=== PATIENT | male | born 1970 | race Caucasian/White ===

== ENCOUNTER 2022-10-04 09:13 | Emergency (ER) | payer OTHER, SELFPAY ==
[2022-10-04 09:20] VITALS: BP 154/95; PULSE 72; RESP 16; TEMP 37.2; O2SAT 99
--- NOTE | 2022-10-04 09:22 | ED.URI ---
HPI - URI/Sore Throat General Chief Complaint: Upper Respiratory Infection Stated Complaint: Cough/Sore Throat Time Seen by Provider: 10/04/22 09:24 Source: patient and RN notes reviewed Mode of arrival: ambulatory Limitations: no limitations History of Present Illness HPI Narrative: 52-year-old male presents with concern for 2 day history of cough and nasal congestion. Reports sore throat. Reports he took a Mucinex without relief. He denies fever, aches, chills, sweats. Denies known sick contacts. MD elicited complaint: cough and sore throat Related Data Allergies Allergy/AdvReac Type Severity Reaction Status Date / Time No Known Allergies Allergy Verified 03/21/22 17:04 Review of Systems Review of Systems: CONSTITUTIONAL: Denies malaise, chills, sweats, or fever. EYES: Denies visual changes, redness, or discharge. ENT: Reports rhinorrhea, congestion, sore throat. Denies sinus pain, otalgia CARDIOVASCULAR: Denies chest pain, palpitations, or edema. RESPIRATORY: Reports cough. Denies dyspnea. GASTROINTESTINAL: Denies abdominal pain, nausea, vomiting, diarrhea SKIN: Denies rash or itching. MUSCULOSKELETAL: Denies myalgia. NEUROLOGIC: Denies headache. All systems reviewed & are unremarkable except as noted in HPI and below PMFSH Past Medical History Medical History (Updated 10/04/22 @ 09:32 by Rossy Bautista NP) Anxiety BMI 32.0-32.9,adult BMI 34.0-34.9,adult Erectile dysfunction Essential hypertension Primary insomnia Social History Social History Smoking status: Former smoker Alcohol intake: current Drinks per week: 15 Alcohol use details: every other day Comments At time of signature, agree with nursing past medical, surgical, social and family history. There is no relevant family history pertinent to the presenting complaint Exam Narrative: GENERAL: Well-appearing, well-nourished, and in no acute distress. HEAD: Normocephalic EYES: PERRLA, conjunctivae clear ENT: Nares clear, turbinates edematous and erythematous, clear discharge. Mucous membranes moist. TM pearly clemens with dull light reflex bilaterally; no tragal tenderness. Oropharynx not erythematous without lesions. Tonsils not enlarged and without exudate, no drooling, no hoarseness, no trismus, uvula midline. NECK: Supple. No lymphadenopathy CHEST: Scattered wheeze, otherwise Clear to auscultation, breath sounds equal. No rhonchi, rales, or stridor. No respiratory distress, speaks in full sentences. HEART: Regular rate and rhythm. No murmur heard. SKIN: Warm, dry, no rash. NEURO: Alert and oriented x3. PSYCH: Normal mood and affect Course Course Emergency Course: Patient is aware of diagnosis, understands and agrees to treatment plan. Anticipatory guidance given. Patient agrees to follow-up as directed and is aware of reasons to seek care at the emergency department. Portions of this record may have been created with voice recognition software Level of Care: Express Care Visit Vital Signs Vital signs: Vital Signs Temperature 99 F 10/04/22 09:20 Pulse Rate 72 10/04/22 09:20 Respiratory Rate 16 10/04/22 09:20 Blood Pressure 154/95 H 10/04/22 09:20 Pulse Oximetry 99 10/04/22 09:20 Oxygen Delivery Room Air 10/04/22 09:20 Temperature 99 F 10/04/22 09:20 Pulse Rate 72 10/04/22 09:20 Respiratory Rate 16 10/04/22 09:20 Blood Pressure 154/95 H 10/04/22 09:20 Pulse Oximetry 99 10/04/22 09:20 Oxygen Delivery Room Air 10/04/22 09:20 Reviewed. MDM - URI/Sore Throat MDM Narrative Medical decision making narrative: Differential diagnosis considered: Carvajal virus, strep pharyngitis, allergic rhinitis, upper respiratory tract infection, sinusitis, rhinosinusitis, nasopharyngitis. viral pharyngitis, otitis media, otitis externa, pneumonia, bronchitis, viral cough syndrome, viral syndrome, and influenza. Exam findings show no acute concerns or changes;
== END 2022-10-04 09:43 | disposition home or self-care (01) ==
PROVIDERS: Emergency Provider Nurse Practitioner; PCP Family Medicine
DX: J06.9 Acute upper respiratory infection, unspecified (principal); I10 Essential (primary) hypertension; Z87.891 Personal history of nicotine dependence
CPT/HCPCS: 99213; G0463

== ENCOUNTER 2023-02-14 09:37 | Emergency (ER) | payer OTHER, SELFPAY ==
--- NOTE | ~2023-02-14 | XR_ITS ---
EXAMINATION: XR elbow RT min 3V DATE: 02/14/2023 10:03 INDICATION: Tennis elbow with chronic right elbow pain TECHNIQUE: Anteroposterior, two oblique and lateral views of the right elbow were obtained. COMPARISON: None. FINDINGS: Alignment is normal. No fracture or joint effusion. Joint spaces are normal. Large enthesophyte at th e triceps insertion along the proximal olecranon. Additional moderate size enthesophyte at the latera l epicondylar origin of the common extensor tendon wad. IMPRESSION: 1. Enthesophytes at the olecranon and lateral humeral epicondyle. Reviewed, dictated and finalized at location L.
[2023-02-14 09:44] VITALS: BP 182/101; PULSE 87; RESP 20; TEMP 36.7; O2SAT 96
--- NOTE | 2023-02-14 10:18 | ED.GENADULT ---
HPI - General Adult General Chief complaint: Extremity Injury, Upper Stated complaint: Right Elbow Pain Time Seen by Provider: 02/14/23 10:03 Source: patient, RN notes reviewed and old records reviewed Mode of arrival: ambulatory Limitations: no limitations History of Present Illness HPI narrative: 52 year old male who resents to express care with complaints of right elbow pain for months. He reports that he thinks it is severe tennis elbow and he he wearing Velcro wrap to his proximal elbow area. 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 He states that arm doesn't get any rest, reports that he was on vacation for a week and he continued to have pain. He has been taking Ibuprofen for his discomfort. MD complaint: right elbow pain Onset (ago): month(s) Location: right and upper extremity (elbow) Severity scale (1-10): 10 Treatments prior to arrival: NSAID and splint (Velcro strap) Related Data Allergies Allergy/AdvReac Type Severity Reaction Status Date / Time No Known Allergies Allergy Verified 02/14/23 09:50 Review of Systems Review of Systems: CONSTITUTIONAL: Denies fever, chills, or sweats. EYES: Denies visual changes, redness, or discharge. ENT: Denies rhinorrhea, congestion, sore throat, or otalgia. CARDIOVASCULAR: Denies chest pain, palpitations, or edema. RESPIRATORY: Denies cough or dyspnea. GASTROINTESTINAL: Denies abdominal pain, nausea, vomiting, or diarrhea. GENITOURINARY: Denies dysuria or hematuria. SKIN: Denies rash or itching. MUSCULOSKELETAL: Denies back pain,positive for right elbow joint pain, or myalgia. NEUROLOGIC: Denies headache, numbness, or weakness. PSYCHIATRIC:reports history of anxiety or depression. All systems reviewed & are unremarkable except as noted in HPI and below PMFSH Past Medical History Medical History Adult BMI 31.0-31.9 kg/sq m Anxiety BMI 32.0-32.9,adult BMI 34.0-34.9,adult Erectile dysfunction Essential hypertension Primary insomnia Social History Social History (Updated 02/16/23 @ 06:58 by Mounika Calhoun NP) Smoking status: Former smoker Alcohol intake: current Drinks per week: 15 Alcohol use details: every other day Substance use type: does not use Living arrangements: with family Gender identity (if verbalized by the patient): Male Comments At time of signature, agree with nursing past medical, surgical, social and family history. There is no relevant family history pertinent to the presenting complaint Exam Narrative: GENERAL: Well-appearing, well-nourished, and in no acute distress. HEAD: Normocephalic, atraumatic. EYES: PERRLA and EOMI. ENT: Nares clear, no rhinorrhea or epistaxis. Mucous membranes moist.TM's normal, throat pink with no swelling NECK: Supple. no lymphadenopathy CHEST: Clear to auscultation. No respiratory distress.SAO2 96% on room air HEART: Regular rate and rhythm. No murmur heard. Normal peripheral pulses. ABDOMEN: Soft, nontender, nondistended, normal active bowel sounds. EXTREMITIES: Normal range of motion. No edema.Pain to right elbow with full ROM noted but with pain, strong pulses to right arm and wrist,sensation intact, voices increased pain with movement.Pain with palpation along olecranon and lateral elbow region. SKIN: Warm, dry, no rash. NEURO: No focal deficits. Alert and oriented x3. Course Course Emergency Course: Patient is aware of diagnosis, understands and agrees to treatment plan.? Anticipatory guidance given.? Patient agrees to follow-up as directed and is aware of reasons to seek care at the emergency department. Portions of this record may have been created with voice recognition software Level of Care: Express Care Visit Vital Signs Vital signs: Vital Signs Temperature 36.7 C 02/14/23 09:44 Pulse Rate 87 02/14/23 09:44
[2023-02-14 10:32] VITALS: BP 151/89
== END 2023-02-14 10:38 | disposition home or self-care (01) ==
PROVIDERS: Emergency Provider Registered Nurse; PCP Family Medicine
DX: M25.521 Pain in right elbow (principal); Z87.891 Personal history of nicotine dependence; I10 Essential (primary) hypertension
CPT/HCPCS: 73080; 99213; G0463

== ENCOUNTER 2023-05-22 11:39 | Outpatient (CLI) | payer OTHER, SELFPAY ==
--- NOTE | ~2023-05-22 | CT_ITS ---
EXAMINATION: CT abdomen pelvis w con DATE: 05/22/2023 12:03 INDICATION: Left lower quadrant abdominal pain. TECHNIQUE: Computed tomography (CT) of the abdomen and pelvis was performed with 100 mL Omnipaque 350 intravenous contrast. Automated exposure control and iterative reconstruction technique were employe d. The dose-length product was 1212.33 mGy-cm. COMPARISON: None. FINDINGS: The visualized portions of the lung bases demonstrate mild atelectasis. A calcified right l ivana nodule and calcified right hilar and mediastinal lymph nodes are consistent with old granulomatou s disease. No pleural effusion. The heart size is normal. No pericardial effusion. There is diffuse h epatic steatosis. Calcifications in the liver and spleen are consistent with old granulomatous diseas e. There are changes of cholecystectomy. The adrenal glands and kidneys are normal. There are scatter ed diverticula in the colon. There is fat stranding around sigmoid colon colon with wall thickening o f sigmoid colon, consistent with diverticulitis. The appendix is normal. There are no dilated loops o f bowel. The prostate is mildly enlarged. There are no pathologically enlarged lymph nodes. There is no free intraperitoneal fluid. There is mild lumbar spondylosis. IMPRESSION: 1. Acute sigmoid diverticulitis. No perforation or abscess. Reviewed, dictated and finalized at location A.
[2023-05-22 11:59] LABS: Estimated Glomerular Filt Rate > 60
[2023-05-22 12:46] LABS: Basophils Absolute Auto 0.1 K/mm3 (0.0-0.1); Basophils Percent Auto 0.6 % (0.2-1.2); Eosinophils Absolute Auto 0.3 K/mm3 (0-0.3); Eosinophils Percent Auto 2.5 % (0-4.4); Hematocrit 44.2 % (42.0-52.0); Hemoglobin 14.9 g/dL (14.0-18.0); Immature Granulocyte Absolute 0.02 K/mm3 (0.00-0.031); Immature Granulocyte Percent A 0.2 % (0-0.5); Lymphocytes Absolute Auto 1.43 K/mm3 (0.9-3.2); Lymphocytes Percent Auto 13.9 % (18.3-44.2); Mean Corpuscular HGB Conc 33.7 g/dl (32-36); Mean Corpuscular Hemoglobin 30.8 pg (26-34); Mean Corpuscular Volume 91.3 fl (80-100); Mean Platelet Volume 10.3 fl (7.4-10.4); Monocytes Percent Auto 9.6 % (2.6-8.5); Neutrophils Absolute Auto 7.5 K/mm3 (1.3-6.7); Neutrophils Percent Auto 73.2 % (45.5-73.1); Platelet Count Result 255 k/mm3 (150-375); Red Blood Count 4.84 M/mm3 (4.6-6.20); Red Cell Distribution Width 12.2 % (11.5-14.5); White Blood Count 10.3 K/mm3 (4.5-10.0)
[2023-05-22 12:57] LABS: Alanine Aminotransferase 46 U/L (6-50); Albumin Level 4.2 g/dL (3.5-5.1); Alkaline Phosphatase 58 U/L (38-126); Anion Gap 7 mmol/L (8-16); Aspartate Amino Transferase 33 U/L (17-59); Bilirubin,Total 0.8 mg/dL (0.2-1.3); Blood Urea Nitrogen 19 mg/dL (9-20); Carbon Dioxide 27 mmol/L (22-30); Chloride 103 mmol/L (98-107); Estimated Glomerular Filt Rate > 60; Glucose 101 mg/dL (65-110); Potassium 3.7 mmol/L (3.4-5.0); Sodium 137 mmol/L (137-145)
== END 2023-05-22 11:40 | disposition home or self-care (01) ==
LOC: ANHIMG 11:41
PROVIDERS: PCP Family Medicine; Visit Provider Physician Assistant Medical
DX: R10.32 Left lower quadrant pain (principal); K57.32 Diverticulitis of large intestine without perforation or abscess without bleeding
CPT/HCPCS: 74177; 80053; 85025; Q9967

== ENCOUNTER 2023-09-12 14:19 | Emergency (ER) | payer OTHER, SELFPAY ==
--- NOTE | 2023-09-12 14:26 | ED.EAR ---
HPI - Ear Problem General Chief complaint: Ear Stated complaint: Cough/Ear Pain Source: patient and RN notes reviewed History of Present Illness HPI Narrative: 53 yo M presents to urgent care with complaints of continuous cough, congestion in chest, and bialteral ear fullness. Pt states he really can't hear out of his left ear, more so than normal. Pt states this all started about 2 weeks ago and was placed on a z-pack by his PCP with no relief. Pt reports some SOB. Denies any fever, chills, chest pain, N/V/D. Related Data Allergies Allergy/AdvReac Type Severity Reaction Status Date / Time No Known Allergies Allergy Verified 06/15/23 15:11 Review of Systems Review of Systems: Pertinent positives and pertinent negatives per HPI. [facility] Past Medical History Medical History Adult BMI 31.0-31.9 kg/sq m Anxiety BMI 32.0-32.9,adult BMI 34.0-34.9,adult Erectile dysfunction Essential hypertension Primary insomnia Surgical History Surgical History H/O hernia repair History of cholecystectomy Social History Social History Smoking status: Former smoker Alcohol intake: current Drinks per week: 8 Alcohol use details: every other day Substance use type: does not use Living arrangements: with family Gender identity (if verbalized by the patient): Male Comments At the time of my signature, I reviewed and agree with the nursing past medical, surgical, social, and family history. There is no relevant family history pertinent to the patient complaint. Exam Narrative: GENERAL: This is a well-nourished, well-developed patient, in no apparent distress. HEAD: normocephalic, atraumatic. EYES: Sclera clear/white. Vision is grossly intact. EARS: External ears normal, auditory canals clear and without drainage, Right TM normal without perforation. Hearing grossly intact. Left TM erythremic and + perforation. no drainage. NOSE: External nose normal with no obvious nasal discharge, nares without redness, no rhinorrhea. THROAT: Mucous membranes moist, posterior pharynx clear. NECK: Neck supple, non-tender without lymphadenopathy, masses or thyromegaly. CARDIOVASCULAR: Regular rate and rhythm without murmurs, gallops, or rubs. RESPIRATORY: Breath sounds equal bilaterally. Mild wheezes noted throughout. No rales, or rhonchi. SKIN: warm, intact with no suspicious lesions or rash, good texture and turgor. NEURO: awake, alert, and oriented to person, place and time. There were no obvious focal neurologic abnormalities. EXTREMITIES: No clubbing, cyanosis, or edema. No joint tenderness, effusion, or edema noted. BACK: Nontender without deformity or crepitus. No flank tenderness. Course Course Level of Care: Express Care Visit Vital Signs Vital signs: Reviewed Medical Decision Making MDM Narrative Medical decision making narrative: Take steroids as directed. May use the inhaler every 4-6 hours as needed for coughing. Increase fluids at home. Avoid any and all smoke. May use a humidifier in the bedroom. Increase your Vitamin C. Follow-up with personal physician in 2-5 days. Take the antibiotics as directed. Take an antihistamine or Sudafed at home as directed. Get plenty of fluids. Differential Diagnosis Differential Diagnosis: AOM, cerumen impaction, TM rupture, sinusitis, PNA, bronchitis Critical Care Time Critical Care Time Critical Care Time: No Discharge Plan Discharge Clinical Impression: Otitis media, serous, TM rupture, Bronchitis Patient Disposition: Home, Self-Care Condition: Stable Instructions: Antibiotic Form, Acute Bronchitis (ED), Fluid In The Ear (Serous Otitis Media) (ED) Additional Instructions: Take steroids as directed. May use the inhaler every 4-6 hours as needed for coughing. Increase fluids at tano
[2023-09-12 14:29] VITALS: BP 152/100; PULSE 80; RESP 16; TEMP 36.6; O2SAT 97
== END 2023-09-12 14:42 | disposition home or self-care (01) ==
PROVIDERS: Emergency Provider Nurse Practitioner Family; PCP Family Medicine
DX: H65.92 Unspecified nonsuppurative otitis media, left ear (principal); H72.92 Unspecified perforation of tympanic membrane, left ear; J40 Bronchitis, not specified as acute or chronic; Z87.891 Personal history of nicotine dependence; I10 Essential (primary) hypertension
CPT/HCPCS: 99213; G0463

== ENCOUNTER 2023-12-29 13:34 | Emergency (ER) | payer OTHER, SELFPAY ==
[2023-12-29 13:40] VITALS: BP 142/81; PULSE 66; RESP 16; TEMP 36.4; O2SAT 99
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
== END 2023-12-29 14:03 | disposition home or self-care (01) ==
PROVIDERS: Emergency Provider Nurse Practitioner Family; PCP Family Medicine
DX: S81.802A Unspecified open wound, left lower leg, initial encounter (principal); X58.XXXA Exposure to other specified factors, initial encounter; I10 Essential (primary) hypertension; Z87.891 Personal history of nicotine dependence
CPT/HCPCS: 99213; G0463

== ENCOUNTER 2024-09-06 07:51 | Outpatient (CLI) | payer OTHER, SELFPAY ==
--- NOTE | ~2024-09-06 | MR_ITS ---
EXAMINATION: MR elbow RT wo con DATE: 09/06/2024 08:40 INDICATION: Right elbow lateral epicondylitis TECHNIQUE: Magnetic resonance imaging (MRI) of the right elbow was performed without intravenous cont rast. Sequences included coronal, axial, and sagittal PD-weighted FS FSE and coronal, axial, and sagi ttal PD-weighted FSE. COMPARISON: None FINDINGS: Osseous/other: Normal alignment. Normal marrow signal with no marrow edema, fracture, osteochondral lesion or abnor mal marrow replacing process. Mild osteoarthritis with mild nonuniform partial-thickness cartilage lo ss with smooth chondral surface and without degenerative subchondral changes. Tendons: Mild distal triceps tendinopathy without tear but with moderate-sized enthesophyte at its posterior i nsertion. Additional mild tendinopathy without tear at the distal biceps brachii and brachialis tendo ns. Mild tendinopathy without tear at the common flexor tendon wad. Mild tendinopathy common extensor tendon wad but with large partial tear involving the majority of the lateral epicondylar origin. The tear measures 12 mm proximal to distal and 7 mm AP but without retraction. Small portions of the pos terior and inferior insertion of the extensor wad remain intact. Ligaments: Mild partial tear along the anterior proximal humeral insertion of the lateral collateral ligament co mplex. The medial collateral ligament complex is normal. Cubital tunnel: There is mild thickening and increased signal of the ulnar nerve immediately proximal to the cubital tunnel. The cubital tunnel however appears unremarkable with no evident impinging lesions upon the ne rve which remains surrounded by fat signal in the cubital tunnel. Fluid: Physiologic amount of fluid the elbow joint. IMPRESSION: 1. Mild tendinopathy but with large partial tear at the lateral epicondylar origin of the common exte nsor tendon wad. 2. Mild partial tear at the humeral origin of the lateral collateral ligament complex. 3. Mild tendinopathy without tears at the distal triceps, biceps brachii and brachialis tendons as we ll as the common flexor tendon wad. 4. Mild osteoarthritis at the right elbow. 5. Mild thickening and increased signal of the ulnar nerve immediately proximal to the cubital tunnel which can be seen with cubital tunnel syndrome although no evident impinging lesions are identified at the cubital tunnel. Correlate clinically for signs/symptoms of carpal tunnel syndrome. Reviewed, dictated and finalized at location B. [employer]AG[employer] IMPRESSION: 1. Mild tendinopathy but with large partial tear at the lateral epicondylar jory gin of the common extensor tendon wad. 2. Mild partial tear at the humeral origin of the lateral collateral ligament c omplex. 3. Mild tendinopathy without tears at the distal triceps, biceps brachii and br achialis tendons as well as the common flexor tendon wad. 4. Mild osteoarthritis at the right elbow. 5. Mild thickening and increased signal of the ulnar nerve immediately proximal to the cubital tunnel which can be seen with cubital tunnel syndrome although no evident impinging lesions are identified at the cubital tunnel. Correlate cl inically for signs/symptoms of carpal tunnel syndrome.
== END 2024-09-06 07:52 | disposition home or self-care (01) ==
PROVIDERS: PCP Family Medicine; Visit Provider Orthopaedic Surgery
DX: M77.11 Lateral epicondylitis, right elbow (principal); M19.021 Primary osteoarthritis, right elbow; S53.441A Ulnar collateral ligament sprain of right elbow, initial encounter; X58.XXXA Exposure to other specified factors, initial encounter
CPT/HCPCS: 73221

== ENCOUNTER 2024-10-19 10:28 | Emergency (ER) | payer OTHER, SELFPAY ==
--- NOTE | 2024-10-19 10:33 | ED.URI ---
HPI - URI/Sore Throat General Chief Complaint: Upper Respiratory Infection Stated Complaint: COUGH/CONGESTION/HEADACHE Time Seen by Provider: 10/19/24 10:52 Source: patient, RN notes reviewed and old records reviewed Mode of arrival: ambulatory Limitations: no limitations History of Present Illness HPI Narrative: 54-year-old male presents to the [facility] with complaints of cough, congestion, headache that started on Lachelle, 10days. Patient is concerned with a cough due to having to upcoming surgeries, oral surgery and elbow surgery. Patient states that he does not feel sick he just has a cough and wanted better. Patient denies any fevers, chest pain. Patient denies smoking. Related Data Allergies Allergy/AdvReac Type Severity Reaction Status Date / Time No Known Allergies Allergy Verified 10/19/24 10:35 Review of Systems Review of Systems: All systems reviewed & are unremarkable except as noted in HPI and below Constitutional: Constitutional: Reports no additional constitutional complaints ENT: Reports system reviewed and no additional complaints, except as documented Cardiovascular: Cardiovascular: Reports no additional cardiovascular complaints, Denies chest pain and Denies dyspnea Respiratory: Respiratory: Reports as per HPI, Denies chest congestion, Reports cough and Denies dyspnea Musculoskeletal: Musculoskeletal: Reports no additional musculoskeletal complaints Integumentary/Breasts: Skin/Breast: Reports system reviewed and no additional complaints, except as docu PMFSH Past Medical History Medical History Erectile dysfunction Essential hypertension Anxiety Primary insomnia Surgical History Surgical History History of cholecystectomy H/O hernia repair Social History Social History Smoking status: Former smoker Alcohol intake: current Drinks per week: 8 Alcohol use details: every other day Substance use type: does not use Living arrangements: with family Gender identity (if verbalized by the patient): Male Comments At the time of my signature, I reviewed and agree with the nursing past medical, surgical, social, and family history. There is no relevant family history pertinent to the patient complaint. Exam Const: General: cooperative, healthy appearing, comfortable, no acute distress, well developed, alert and well nourished Nutritional Appearance: well nourished Orientation/consciousness: patient oriented x3 Limitations: no limitations HENMT: Head: normal to inspection Ears: hearing grossly normal bilaterally, external ears normal, TM's normal bilaterally, EAC's normal, mastoids normal and no periauricular adenopathy Mouth: Yes Normal oral and palatal mucosa present, Yes lip normal, Yes tongue normal and Yes moist mucous membranes Throat: posterior oropharynx normal, uvula midline, postnasal drainage and no uvular edema Eyes: General: appearance normal, both eyes and all related structures Alignment and Position: alignment normal Neck: Neck: normal visual inspection, full ROM, no lymphadenopathy and no meningeal signs Chest: Chest palpation & inspection: normal inspection of the chest Resp: Effort & Inspection: normal respiratory effort and able to speak in complete sentences Auscultation: clear to auscultation bilaterally, no crackles, no rales, no rhonchi and no wheezes Cardio: Rate: regular rate Skin: General skin exam: normal color and no rashes or lesions noted Neuro: General: patient oriented x3, gait normal, moves all extremities and no meningeal signs Cognition (Neuro): normal cognition Speech: normal speech Gait exam (Neuro): Normal gait present Extrem: General: normal to inspection, full ROM, capillary refill normal and normal gait Psych: Appearance: grossly normal and well kempt Mental Status: mental status grossly normal Speech and movement: Normal speech and movement present and Clear speech present Affect: normal affect Attitude: cooperative Course Course Level of Care: Express Care Visit Vital Signs Vital signs: Vital Signs Temperature 98 F 10/19/24 11:00 Pulse Rate 96 10/19/24 11:00 Respiratory Rate 16 10/19/24 11:00 Blood Pressure 151/99 H 10/19/24 11:00 Pulse Oximetry 99 10/19/24 11:00 Oxygen Delivery Room Air 10/19/24 11:00 Temperature 98 F 10/19/24 11:00 Pulse Rate 96 10/19/24 11:00 Respiratory Rate 16 10/19/24 11:00 Blood Pressure 151/99 H 10/19/24 11:00 Pulse Oximetry 99 10/19/24 11:00 Oxygen Delivery Room Air 10/19/24 11:00 Reviewed MDM - URI/Sore Throat MDM Narrative Medical decision making narrative: Patient sitting in exam room. Nontoxic, vitals stable. Patient presents with 10 day history of a cough. Patient with no acute findings other than postnasal drainage. Patient is due for 2 surgeries, oral surgery and elbow surgery. Discussed risks of steroids to decreased immune system as well as decreased healing process. Due to 10 day history, will prescribe the doxycycline, patient is declining the prednisone after Education. Patient appropriate for outpatient treatment Discharge instructions reviewed with patient, as well as provided in writing per nursing staff. The instructions also include specific and strict return/GO TO THE ER as well as f/u information. All questions have been answered, and the patient deny any further questions with discharge and discharge plan. Some parts of this dictation were generated by voice recognition software and may contain typographical and/or grammatical inaccuracies. Differential Diagnosis Differential diagnosis: Likely upper respiratory infection, otitis media, sinusitis, viral infection, bronchitis and pharyngitis Critical Care Time Critical Care Time Critical Care Time: No Discharge Plan Discharge Clinical Impression: Bronchitis, PND (post-nasal drip) Sinusitis Qualifiers: Sinusitis location: unspecified location Chronicity: unspecified Qualified Code(s): J32.9 - Chronic sinusitis, unspecified Patient Disposition: Home, Self-Care Condition: Stable Instructions: Antibiotic Form, Sinusitis (ED), Postnasal Drip (DC) Additional Instructions: It is very important to treat your symptoms. Drink plenty of water, Gatorade, Pedialyte, ice pops or Jell-O. -Alternate Tylenol and Motrin per package directions for fever or pain. You can alternate every 4 hours -Antihistamine medication such as Zyrtec/Claritin/Trinity during the day can help improve symptoms. -doing daily nasal irrigations can help relieve pressure your sinuses. Things like a Neti pot -Use Flonase twice a day for 5 days then daily to help reduce the inflammation and dry up your sinuses. -You can also use Mucinex. Be sure to drink plenty of water with this medication at least 8 ounces with every dose and it is important to drink 8 to 10 glasses of water per day. Water is a natural decongestant -Eat and drink things that are easy to swallow, like tea or soup, or popsicles. -Oral rinses such as: Salt water gargles and/or may use topical anesthetic (eg. Chloraseptic spray) or lozenges to relieve dryness or throat pain). -Frequent hand washing or hand nurse instructor is one of the best ways to prevent spread of infection. -Using a vaporizer or humidifier at night will also help thin secretions and help with coughing up phlegm. -Follow up with primary care provider in 7-10 days if condition is not improving - For new or worsening symptoms go directly to the nearest ER Patient Language: Georgian Prescriptions: New doxycycline monohydrate 100 mg tablet 100 mg PO BID Qty: 14 0RF No Action sildenafil 100 mg tablet 100 mg PO DAILY PRN (Reason: sexual activity) Qty: 30 1RF Rx Instructions: administer 30 minutes to 4 hours before activity bupropion HCl 150 mg tablet extended release 24 hr See Rx Instructions .ROUTE .COMPLEX Qty: 90 1RF Dose Instruction: TAKE 1 TABLET BY MOUTH EVERY MORNING. Rx Instructions: TAKE 1 TABLET BY MOUTH EVERY MORNING. losartan-hydrochlorothiazide 50-12.5 mg tablet 1 tablet PO DAILY Qty: 90 1RF alprazolam 0.5 mg tablet 0.5 mg PO TID PRN (Reason: anxiety) Qty: 30 0RF Follow-up/Referrals: Arthur Melchor MD [Primary Care Provider] - 1 Week (express care follow ) Stand Alone Forms: Work/School Release IP Time of Disposition: 11:04
[2024-10-19 11:00] VITALS: BP 151/99; PULSE 96; RESP 16; TEMP 36.6; O2SAT 99
--- OUTSIDE RECORDS SUMMARY | 2024-10-26 14:04 | XMS_ITS | Encounter Summary ---
Author Organization [facility] Address [address] [place] [address]. [place] [address] [place] [address] Care Team Providers Care Police Captain Name Role Phone Femi Cullen MD Primary Care Provider Unavailable Encounter Details Date Type Department Care Team (Late st Contact Info) Description 08/03/2010 Abstract [facility] [place] [address] Iván Zafar IV, MD [address] [id number] Social History Tobacco Use Types Packs/Day Years Used Date Smoking Tobacco: Never Assessed Sex and Gender Information Value Date Recorded Sex Assigned at Not on file Legal Sex Male 7:05 PM CDT Gender Identity Not on file Sexual Orientation Not on file documented as of this encounter Plan of Treatment Not on file documented as of this encounter Visit Diagnoses Diagnosis Residual foreign body in soft tissue documented in this encounter Care Teams Police Captain Relationship Specialty Start Date End Date Femi Cullen MD PCP - General 08/03/10 documented as of this encounter
--- OUTSIDE RECORDS SUMMARY | 2024-10-26 14:04 | XMS_ITS | CONTINUITY OF CARE DOCUMENT ---
Author Name susu cristobal Address Unknown Organization [facility] Address [address] [place] [address] Phone [phone] Care Team Providers Care Habitat Management Coordinator Name Role Phone Elder CALDERÓN, Earl Unavailable BLANCA CALDERÓN, EMMA Ríos Unavailable [phone] JAMES GARCIA MD Unavailable PROBLEMS Condition Status Date Provider Notes Anxiety disorder active Marii VanDoren Frequency of urination active Marii VanDore n Shortness of breath active Jazz Martin Chest pain active Jazz Martin Herpes simplex without menti on of complication active JAMES GARCIA MD ENCOUNTERS Date Type Provider Location Encounter Diag nosis - In-person encounter Office Visit JAMES GARCIA MD [facility] - In-person encounter Office Visit JAMES GARCIA MD [facility] - In-person encounter Office Visit JAMES GARCIA MD [facility] - In-person encounter Office Visit JAMES GARCIA MD [facility] - In-person encounter Office Visit JAMES GARCIA MD [facility] - In-person encounter Office Visit JAMES GARCIA MD [facility] - In-person encounter Office Visit JAMES GARCIA MD [facility] - In-person encounter Office Visit JAMES GARCIA MD [facility] - In-person encounter Office Visit JAMES GARCIA MD [facility] Herpes simplex without mention of complication - In-person encounter Office Visit [facility] - In-person encounter Office Visit [facility] - In-person encounter Office Visit [facility] RESULTS Date Observation Value Provider Reference Range Interpretation Location 9 prostate specific antigen (PSA) complex 0.8 ng/mL [facility] 0.0-3.6 6 alanine aminotransferase (SGPT), serum 35 1/L [facility] 0-44 6 aspartate aminotransferase (SGOT), serum 22 1/L [facility] 0-40 6 alkaline phosphatase, serum 61 1/L [facility] 39-117 6 bilirubin, serum, total 0.6 mg/dL [facility] 0.0-1.2 6 albumin/globulin ratio, serum 2.0 [facility] 1.2-2.2 6 globulin, serum 2.5 [facility] 1.5-4.5 6 albumin, serum 4.9 g/dL [facility] 3.5-5.5 6 protein, total, serum 7.4 g/dL [facility] 6.0-8.5 6 calcium, serum 9.6 mg/dL [facility] 8.7-10.2 6 carbon dioxide, venous blood 22 mmol/L [facility] 18-29 6 chloride, serum 102 mmol/L [facility] 96-106 6 potassium, serum 4.6 mmol/L [facility] 3.5-5.2 6 sodium, serum 141 mmol/L [facility] 270-009 0573/03/1 6 urea nitrogen/creatinine ratio, serum 20 [facility] 9-20 6 eGFR if 94 mL/min/{1 .73_m2} [facility] >59 6 eGFR if not 81 mL/min/{1 .73_m2} [facility] >59 6 creatinine, serum 1.07 mg/dL [facility] 0.76-1.27 6 urea nitrogen, blood 21 mg/dL [facility] 6-24 6 blood glucose, random 89 mg/dL [facility] 65-99 6 hemoglobin A1C, blood, as % of total hemoglobin 5.3 % [facility] 4.8-5.6 6 lipoprotein, beta, serum, point, quantitative, calculated 128 mg/dL [facility] 0-99 High 6 very low density lipoproteins 18 mg/dL [facility] 5-40 6 HDL cholesterol, serum 51 mg/dL [facility] >39 6 triglyceride, serum, random 88 mg/dL [facility] 0-149 6 cholesterol, serum 197 mg/dL [facility] 175-624 7196/03/1 6 basophil count, absolute 0.0 x10E3/uL [facility] 0.0-0.2 6 Eosinophil Absolute Count 0.2 X10E3/UL [facility] 0.0-0.4 6 monocyte count, blood, automated 0.6 X10E3/UL [facility] 0.1-0.9 6 lymphocyte count, blood, automated 2.3 X10E3/UL [facility] 0.7-3.1 6 Absolute Neutrophils 4.3 X10E3/UL [facility] 1.4-7.0 6 basophils as percent of blood leukocytes 0 % [facility] Not Estab. 6 eosinophils as percent of blood leukocytes 2 % [facility] Not Estab. 6 monocytes as percent of blood leukocytes 9 % [facility] Not Estab. 6 lymphocytes as percent of blood leukocytes 31 % [facility] Not Estab. 6 neutrophils as percent of blood leukocytes 58 % [facility] Not Estab. 6 platelet count 319 X10E3/UL [facility] 664-888 2054/03/1 6 red blood cell distribution width 12.5 % [facility] 12.3-15.4 6 mean corpuscular hemoglobin concentration, RBC 34.0 G/DL [facility] 31.5-35.7 6 mean corpuscular hemoglobin, RBC 30.8 pg [facility] 26.6-33.0 6 mean corpuscular volume, RBC 90 fL [facility] 79-97 6 hematocrit, blood 47.0 % [facility] 37.5-51.0 6 hemoglobin, blood 16.0 g/dL [facility] 13.0-17.7 6 erythrocyte (RBC) count 5.20 X10E6/UL [facility] 4.14-5.80 6 leukocyte count, blood 7.4 X10E3/UL [facility] 3.4-10.8 4 thyroid stimulating hormone, serum 1.13 u[IU]/mL [facility] 0.270-4.20 Normal 4 thyroxine, serum, total 6.52 ug/dL [facility] 4.5-11.7 Normal 4 basophils, absolute, manual 0.05 K/UL [facility] 0.0-0.1 Normal 4 basophils as percent of blood leukocytes 0.9 % [facility] 0.3-0.9 Normal 4 eosinophils, absolute, manual 0.20 K/UL [facility] 0.1-0.5 Normal 4 eosinophils as percent of blood leukocytes 3.9 % [facility] 1.1-7.6 Normal 4 monocyte count, blood 0.53 10*3/mm3 [facility] 0.2-0.7 Normal 4 monocytes as percent of blood leukocytes 10.4 % [facility] 4.2-11.2 Normal 4 lymphocytes as percent of blood leukocytes 1.78 K/UL [facility] 0.6-3.4 Normal 4 lymphocytes, absolute 35.2 % [facility] 19.8-46.2 Normal 4 neutrophil count, absolute 2.51 K/uL [facility] 1.9-5.9 Normal 4 neutrophils as percent of blood leukocytes 49.6 % [facility] 42.7-72.4 Normal 4 mean platelet volume 9.9 % [facility] 7.4-9.9 Normal 4 red blood cell distribution width 10.6 % [facility] 10.9-14.6 Low 4 platelet count 226 10*3/mm3 [facility] 165-429 Normal 4 mean corpuscular hemoglobin concentration, RBC 34.2 % [facility] 32.5-34.5 Normal 4 mean corpuscular hemoglobin, RBC 30.8 pg [facility] 21.5-33.3 Normal 4 mean corpuscular volume, RBC 90 fL [facility] 76-98 Normal 4 hematocrit, blood 45.1 % [facility] 34.4-47.3 Normal 4 hemoglobin, blood 15.4 g/dL [facility] 12.5-17.2 Normal 4 erythrocyte (RBC) count 5.02 M/UL [facility] 3.8-5.5 Normal 4 leukocyte count, blood 5.0 10*3/mm3 [facility] 3.7-8.9 Normal 4 LDL/HDL (low-density lipoprotein/high-den sity lipoprotein) ratio 2.4 RATIO [facility] 0.2-4.3 Normal 4 VLDL cholesterol 26 mg/dL [facility] 8-41 Normal 4 lipoprotein, beta, serum, point, quantitative, calculated 126 mg/dL [facility] 0-130 Normal 4 cholesterol/HDL ratio, serum, percent 3.9 ratio [facility] 1.5-5.6 Normal 4 HDL cholesterol, serum 52 mg/dL [facility] 55 Low 4 triglyceride, serum, fasting 132 mg/dL [facility] Normal 4 cholesterol, serum 204 mg/dL [facility] 0-199 High 4 bilirubin, serum, total 0.5 mg/dL [facility] 0-1.2 Normal 4 alanine aminotransferase (SGPT), serum 71 1/L [facility] 0-41 High 4 aspartate aminotransferase (SGOT), serum 36 1/L [facility] 0-40 Normal 4 alkaline phosphatase, serum 56 1/L [facility] 40-129 Normal 4 albumin/globulin ratio, serum 1.7 ratio [facility] 1.0-2.6 Normal 4 globulin, serum 2.7 [facility] 1.6-4.0 Normal 4 albumin, serum 4.6 g/dL [facility] 3.97-4.94 Normal protein, total, serum 7.3 g/dL [facility] 6.6-8.7 Normal calcium, serum 9.6 mg/dL [facility] 8.6-10.0 Normal 4 blood glucose, random 99 mg/dL [facility] 74-109 Normal 4 eGFR if 134 mL/min/{1 .73_m2} [facility] >60 Normal 4 eGFR if not 111 mL/min/{1 .73_m2} [facility] >60 Normal urea nitrogen/creatinine ratio, serum 26.2 ratio [facility] 8.0-25.0 High creatinine, serum 0.8 mg/dL [facility] 0.70-1.20 Normal 4 urea nitrogen, blood 21 mg/dL [facility] 6-20 High 4 carbon dioxide, venous blood 23 mmol/L [facility] 22-29 Normal 4 chloride, serum 102 MEQ/L [facility] 98-107 Normal 4 potassium, serum 4.6 MEQ/L [facility] 3.5-5.1 Normal 4 sodium, serum 140 MEQ/L [facility] 136-145 Normal HISTORY OF MEDICATION USE Medication Status Instructions Dates Provider Indications Com ments ACYCLOVIR 400 MG ORAL TABLET active ONE TABLET TWICE DAILY JAMES GARCIA MD XANAX 1 MG ORAL TABLET active 1/2 TABLET IN THE EVENING NEEDED JAMES GARCIA MD INSURANCE PROVIDERS Payer name Policy type / Coverage type Brian red constitution party ID [facility] [id number] Other [id number] TREATMENT PLAN Date Name PSA, TOTAL HEMOGLOBIN A1c TSH, 3RD GENERATION W/REFLEX TO FT4 LIPID PANEL COMPREHENSIVE METABO LIC PANEL, W/EGFR CBC (INCLUDES DIFF/P LT) HISTORY OF PROCEDURES Procedure Date Procedure Name Provider Procedure Notes S tatus Stress EKG JAMES GARCIA MD completed Cardiolite, 2 units JAMES GARCIA MD completed SPECT Images Earl Friedman MD complet ed
--- OUTSIDE RECORDS SUMMARY | 2024-10-26 14:04 | XMS_ITS | CONTINUITY OF CARE DOCUMENT ---
Author Name susu cristobal Address Unknown Organization [facility] Address [address] [place] [address] Phone [phone] Care Team Providers Care Director Of Home Care Hospice Name Role Phone Elder CALDERÓN, Earl Unavailable [phone] BLANCA CALDERÓN, EMMA Ríos Unavailable [phone] JAMES GARCIA MD Unavailable PROBLEMS Condition Status Date Provider Notes Anxiety disorder active Marii VanDoren Frequency of urination active Marii VanDore n Shortness of breath active Jazz Martin Chest pain active Jazz Martin Herpes simplex without menti on of complication active JAMES GARCIA MD ENCOUNTERS Date Type Provider Location Encounter Diag nosis - In-person encounter Office Visit JAMES GARCIA MD [facility] - In-person encounter Office Visit JAMES GARCIA MD [facility] - In-person encounter Office Visit JAMES GARCIA MD [facility] - In-person encounter Office Visit JAMES GARCIA MD [facility] - In-person encounter Office Visit JAMES GARCIA MD [facility] - In-person encounter Office Visit JAMES GARCIA MD [facility] - In-person encounter Office Visit JAMES GARCIA MD [facility] - In-person encounter Office Visit JAMES GARCIA MD [facility] - In-person encounter Office Visit JAMES GARCIA MD [facility] Herpes simplex without mention of complication - In-person encounter Office Visit [facility] Office - In-person encounter Office Visit [facility] - In-person encounter Office Visit [facility] RESULTS Date Observation Value Provider Reference [...] 3.5-5.2 6 sodium, serum 141 mmol/L [facility] 271-854 2822/03/1 6 urea nitrogen/creatinine ratio, serum 20 [facility] [...] 0-149 6 cholesterol, serum 197 mg/dL [facility] 796-822 7923/03/1 6 basophil count, absolute 0.0 x10E3/uL [facility] [...] Estab. 6 platelet count 319 X10E3/UL [facility] 663-098 7322/03/1 6 red blood cell distribution width 12.5 [...] (low-density lipoprotein/high-den sity lipoprotein) ratio 2.4 RATIO [facility] 0.2-4.3 Normal 4 VLDL cholesterol 26 mg/dL [facility] 8-41 Normal 4 lipoprotein, beta, serum, point, quantitative, calculated 126 mg/dL [facility] 0-130 Normal 4 cholesterol/HDL ratio, serum, percent 3.9 ratio [facility] 1.5-5.6 Normal 4 HDL cholesterol, serum 52 [...] Policy type / Coverage type Brian red democrat ID [facility] [id number] Other [id number] TREATMENT PLAN Date Name PSA, TOTAL HEMOGLOBIN [...]
--- OUTSIDE RECORDS SUMMARY | 2024-10-26 14:04 | XMS_ITS | Clinical Summary ---
Author Organization [facility] Address [address] [place] [address]. [place], [place] [address] [place] [address] Care Team Providers Care Garbage Depot Worker Name Role Phone Unavailable Primary Care Provider Unavailabl e Social History Tobacco Use Types Packs/Day Years Used Date Smoking Tobacco: Never Assessed Sex and Gender Information Value Date Recorded Sex Assigned at Not on file Legal Sex Male 7:05 PM CDT Gender Identity Not on file Sexual Orientation Not on file Plan of Treatment Health Maintenance Due Date Last Done Comments Colorectal Cancer Screening Colonoscopy (10 Years) 1968 Annual Physical 1971 Hepatitis C 1986 DTaP, Tdap and Td Vaccines ( 1 - Tdap) 1987 Hepatitis B Vaccines (1 of 3 - 19+ 3-dose series) 1987 Zoster Vaccines (1 of 2) 2018 COVID-19 Vaccine (2023-2 5 season) 2024 Influenza Adult (#1) 2024 Meningococcal Vaccine Aged Out No carmelo catalino eligible based on patient's age to complete this topic Pneumococcal Vaccine: Pediat rics (0 to 5 Years) and At-Risk Patients (6 to 64 Years) Aged Out No longer eligible b ased on patient's age to complete this topic RSV Immunizations Under 20 Months Aged Out No longer eligible based on patient's age to complete this topic
--- OUTSIDE RECORDS SUMMARY | 2024-10-26 14:04 | XMS_ITS | Encounter Summary ---
Author Organization [facility] Address [address] [place] [address]. [place] [address] [place] [address] Care Team Providers Care Block Cutter Name Role Phone Femi Cullen MD Primary Care Provider Unavailable Femi Cullen MD Primary Care Provider Unavailable Encounter Details Date Type Department Care Team (Late st Contact Info) Description 07/08/2010 Abstract [facility] [place] [address] Iván Zafar IV, MD [address] [id number] Social History Tobacco Use Types Packs/Day Years Used Date Smoking Tobacco: Never Assessed Sex and Gender Information Value Date Recorded Sex Assigned at Not on file Legal Sex Male 7:05 PM CDT Gender Identity Not on file Sexual Orientation Not on file documented as of this encounter Plan of Treatment Not on file documented as of this encounter Visit Diagnoses Not on filedocumented in this encounter Care Teams Block Cutter Relationship Specialty Start Date End Date Femi Cullen MD PCP - General 08/03/10 Femi Cullen MD PCP - General 07/22/1008/02 documented as of this encounter
--- OUTSIDE RECORDS SUMMARY | 2024-10-26 14:04 | XMS_ITS | Encounter Summary ---
Author Organization [facility] Address [address] [place] [address]. [place] [address] [place] [address] Care Team Providers Care Pit Clerk Name Role Phone Femi Cullen MD Primary Care Provider Unavailable Femi Cullen MD Primary Care Provider Unavailable Encounter Details Date Type Department Care Team (Late st Contact Info) Description 07/22/2010 Abstract [facility] [place] [address] Iván Zafar IV, MD [address] [id number] Social History Tobacco Use Types Packs/Day Years Used Date Smoking Tobacco: Never Assessed Sex and Gender Information Value Date Recorded Sex Assigned at Not on file Legal Sex Male 7:05 PM CDT Gender Identity Not on file Sexual Orientation Not on file documented as of this encounter Plan of Treatment Not on file documented as of this encounter Visit Diagnoses Diagnosis Other specified pre-operative examination documented in this encounter Care Teams Pit Clerk Relationship Specialty Start Date End Date Femi Cullen MD PCP - General 08/03/10 Femi Cullen MD PCP - General 07/22/1008/02 documented as of this encounter
== END 2024-10-19 11:04 | disposition home or self-care (01) ==
PROVIDERS: Emergency Provider Nurse Practitioner; PCP Family Medicine
DX: J40 Bronchitis, not specified as acute or chronic (principal); J32.9 Chronic sinusitis, unspecified; R09.82 Postnasal drip; I10 Essential (primary) hypertension; Z87.891 Personal history of nicotine dependence
CPT/HCPCS: 99213; G0463

== ENCOUNTER 2024-10-26 06:37 | Outpatient (CLI) | payer OTHER, SELFPAY ==
--- NOTE | 2024-10-26 06:43 | ECG_ITS ---
Test Date: 2024-10-26 06:53:50 Measurements Intervals Chapman Rate: 63 P: 53 CO: 158 QRS: 15 QRSD: 128 T: 29 QT: 397 QTc: 408 Interpretive Statements SINUS RHYTHM MODERATE INTRAVENTRICULAR CONDUCTION DELAY [110+ ms QRS DURATION] ABNORMAL ECG Electronically Signed On 10-26-2024 10:51:17 GL ACCOUNTANT by José Salazar M.D.
[2024-10-26 07:17] LABS: Anion Gap 3 mmol/L (4-12); Blood Urea Nitrogen 17 mg/dL (9-20); Calcium 9.3 mg/dL (8.4-10.2); Carbon Dioxide 29 mmol/L (22-30); Chloride 106 mmol/L (98-107); Estimated Glomerular Filt Rate > 60; Glucose 115 mg/dL (65-110); Sodium 138 mmol/L (137-145)
== END 2024-10-26 06:38 | disposition home or self-care (01) ==
LOC: ANHLAB 06:38
PROVIDERS: PCP Family Medicine; Visit Provider Anesthesiology
DX: R94.31 Abnormal electrocardiogram [ECG] [EKG] (principal); I10 Essential (primary) hypertension; Z79.899 Other long term (current) drug therapy
CPT/HCPCS: 36415; 80048; 93005